=== PATIENT | male | born 1935 | race Caucasian/White ===

== ENCOUNTER 2018-02-05 12:44 | Emergency (ER) | payer MEDICARE ==
[2018-02-05 13:34] VITALS: BP 115/60
--- NOTE | 2018-02-05 14:31 | RAD ---
INDICATION: Left hip injury. COMPARISON: There are no prior studies available for comparison. TECHNIQUE: An AP view of the pelvis and frontal and lateral views of the left hip were obtained. FINDINGS: The bones are in normal alignment. No fracture is seen. 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 IMPRESSION: NO EVIDENCE FOR FRACTURE, IF THE PATIENT'S SYMPTOMS PERSIST RECOMMEND FOLLOW-UP IMAGING.
--- NOTE | 2018-02-05 14:32 | RAD ---
INDICATION: Left knee pain COMPARISON: June 13, 2012 TECHNIQUE: AP and lateral views were obtained. FINDINGS: There is left knee arthroplasty. Both femoral and tibial components appear well seated. There is no radiographic change. The soft tissues are remarkable for vascular calcifications. There is no joint effusion. IMPRESSION: LEFT KNEE ARTHROPLASTY. NO EVIDENCE OF HARDWARE FAILURE.
--- NOTE | 2018-02-05 15:14 | UC ---
Lower Extremity/Ankle HPI - HPI Summary HPI Summary: This 82-year-old gentleman comes to urgent care today after falling on Monday and injuring his left leg he has bruising on both medial and lateral in his thigh. He was just seen at his primary care doctor's office with a did point-of -care testing for his INH 1 machine read him it for the other machine read him at 5. The patient states primary care sent him here for evaluation of the elevated INR and for hemoglobin hematocrit due to the bruising on his leg. Patient complains of leg and knee pain. 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 Luciano infectious disease - History of Current Complaint Chief Complaint: UCLowerExtremity Stated Complaint: LEG COMPLAINT Time Seen by Provider: 02/05/18 14:13 Hx Obtained From: Patient Onset/Duration: Sudden Onset, Lasting Days - 3, Still Present Severity Initially: Moderate Severity Currently: Moderate Pain Intensity: 4 Pain Scale Used: 0-10 Numeric Aggravating Factor(s): Nothing Able to Bear Weight: Yes - Allergies/Home Medications Allergies/Adverse Reactions: Allergies Allergy/AdvReac Type Severity Reaction Status Date / Time No Known Allergies Allergy Verified 02/05/18 13:37 PMH/Surg Hx/FS Hx/Imm Hx Endocrine History: Dyslipidemia Cardiovascular History: Hypertension Psychological History: Depression - Surgical History Surgical History: Yes Surgery Procedure, Year, and Place: cardiac ablation,pacemaker(Rochestor). 3 left total knee. 1 right total knee. catarct pat eyes. tonsiletomy. Left knee replacement 2009. Right knee replacement 1994. ing right hernia repair. L knee replacement - Family History Known Family History: Positive: Unknown - Social History Occupation: Retired Lives: With Family Alcohol Use: Occasionally Substance Use Type: None Smoking Status (MU): Former Smoker Type: Cigarettes Length of Time of Smoking/Using Tobacco: 5 yrs Have You Smoked in the Last Year: No When Did the Patient Quit Smoking/Using Tobacco: 1963 - Immunization History Most Recent Influenza Vaccination: Fall 2013 Most Recent Tetanus Shot: within 10 years Most Recent Pneumonia Vaccination: has had, pt can't recall when Review of Systems Constitutional: Negative Skin: Bruising - Medial and lateral left thigh Eyes: Negative ENT: Negative Respiratory: Negative Cardiovascular: Negative Gastrointestinal: Negative Genitourinary: Negative Motor: Negative Neurovascular: Negative Musculoskeletal: Arthralgia - Left knee, Myalgia - Medial and lateral thigh left left knee Neurological: Negative Psychological: Negative Is Patient Immunocompromised?: No All Other Systems Reviewed And Are Negative: Yes Physical Exam Triage Information Reviewed: Yes Appearance: Well-Appearing, No Pain Distress, Well-Nourished Vital Signs: Initial Vital Signs Temp 98.0 F 02/05/18 13:27 Pulse 67 02/05/18 13:27 Resp 16 02/05/18 13:27 BP 115/60 02/05/18 13:27 Pulse Ox 100 02/05/18 13:27 Vital Signs Reviewed: Yes Eye Exam: Normal Eyes: Positive: Conjunctiva Clear ENT Exam: Normal ENT: Positive: Normal ENT inspection, Hearing grossly normal, Pharynx normal, TMs normal, Uvula midline. Negative: Nasal congestion, Tonsillar swelling, Tonsillar exudate, Trismus, Muffled voice, Hoarse voice, Dental tenderness, Sinus tenderness Neck exam: Normal Neck: Positive: Supple, Nontender Respiratory Exam: Normal Respiratory: Positive: Chest non-tender, No respiratory distress, No accessory muscle use Cardiovascular Exam: Normal Cardiovascular: Positive: RRR, Pulses Normal, Brisk Capillary Refill Musculoskeletal Exam: Other Musculoskeletal: Positive: Strength Intact, ROM Intact, Edema @ - Left thigh Neurological Exam: Normal Neurological: Positive: Alert, Muscle Tone Normal Psychological Exam: Normal Skin Exam: Normal Diagnostics - Radiology No standard instances Xray Interpretation: No Acute Changes Radiology Interpretation Completed By: Radiologist Lower Extremity Course/Dx - Course Course Of Treatment: Plan is to send patient to the emergency department where he can get him CBC and an INR drawn and resulted stat - Differential Dx/Diagnosis Provider Diagnoses: Contusion left thigh elevated INR Discharge - Discharge Plan Condition: Fair Disposition: OTHER Discharge Disposition Comment: to the ED by private car Patient Education Materials: Elevated INR (ED), Hip Contusion (ED) Referrals: Joce Manjarrez MD [Primary Care Provider] - Additional Instructions: Please go directly to the emergency department for evaluation of INR and hemoglobin and hematocrit
== END 2018-02-05 14:47 ==
LOC: UCEAST 12:44
DX: S70.12XA Contusion of left thigh, initial encounter (principal); W19.XXXA Unspecified fall, initial encounter; Y93.9 Activity, unspecified; Y92.9 Unspecified place or not applicable; R79.1 Abnormal coagulation profile; M25.562 Pain in left knee; E78.5 Hyperlipidemia, unspecified; I10 Essential (primary) hypertension; F32.9 Major depressive disorder, single episode, unspecified; Z95.0 Presence of cardiac pacemaker; Z96.653 Presence of artificial knee joint, bilateral; Z87.891 Personal history of nicotine dependence
CPT/HCPCS: 99212; G0463

== ENCOUNTER 2018-02-05 15:17 | Emergency (ER) | payer MEDICARE ==
[2018-02-05 15:58] LABS: ABS Basophils 0.1 10^3/ul (0-0.2); ABS Eosinophils 0.2 10^3/ul (0-0.6); ABS Lymphocytes 1.7 10^3/ul (1.0-4.8); ABS Monocytes 0.9 10^3/ul (0-0.8); ABS Nucleated RBC 0 10^3/ul; Eosinophil % 3.1 % (0-6); Hematocrit 37 % (42-52); Hemoglobin 12.6 g/dl (14.0-18.0); Lymphocyte % 24.9 % (25-47); Mean Corpuscular HGB Conc 34 g/dl (31-36); Mean Corpuscular Hemoglobin 33 pg (27-31); Mean Corpuscular Volume 97 fL (80-94); Mean Platelet Volume 9 um3 (7.4-10.4); Nucleated Red Blood Cells % 0.1; Platelet Count 218 10^3/ul (150-450); Red Blood Count 3.82 10^6/ul (4.0-5.4); Red Cell Distribution Width 14 % (10.5-15); White Blood Count 6.9 10^3/ul (3.5-10.8)
[2018-02-05 16:05] LABS: INR 4.66 (0.77-1.02)
--- NOTE | 2018-02-05 16:08 | ED ---
Lower Extremity - HPI Summary HPI Summary: 82-year-old male presents for INR check today. He states he was seen by primary and his INR was either 4 or 5. He states his primary sent him to urgent care but they cannot do a stat INR so they sent him here. He states he had x-rays which were normal. He states he has a contusion to his left leg from falling 3 days ago. He states the area is black and blue. He denies any numbness or tingling. He is able to ambulate with a cane. He denies any hematuria or rectal bleeding. Denies any epistaxis. He is on Coumadin for A. fib. He states that last week his inr was low so they increase his dose. He states he has not been following his diet 2 weeks ago as he was on vacation. 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, Other Cardiovascular Problems /Disorders - mitral valve insufficiency, a-fib resolved Denies: Hx Congestive Heart Failure History: Reports: Other Problems/Disorders - chronic enlarged bladder Denies: Hx Kidney Stones Musculoskeletal History: Reports: Other Musculoskeletal History - Bilateral knee replacements Sensory History: Reports: Hx Contacts or Glasses, Hx Hearing Aid Opthamlomology History: Reports: Hx Contacts or Glasses Neurological History: Reports: Other Neuro Impairments/Disorders - [place] - Surgical History Surgery Procedure, Year, and Place: cardiac ablation,pacemaker(Rochestor). 3 left total knee. 1 right total knee. catarct pat eyes. tonsiletomy. Left knee replacement 2009. Right knee replacement 1994. ing right hernia repair. L knee replacement Hx Anesthesia Reactions: No Infectious Disease History: Unable to Obtain/Confirm Infectious Disease History: Denies: Traveled Outside the [place] in Last 30 Days - Family History Known Family History: Positive: Unknown - Social History Alcohol Use: Occasionally Substance Use Type: Reports: None Smoking Status (MU): Former Smoker Type: Cigarettes Length of Time of Smoking/Using Tobacco: 5 yrs Have You Smoked in the Last Year: No Review of Systems Negative: Fever Negative: Chest Pain Negative: Shortness Of Breath Positive: Bruising - left leg All Other Systems Reviewed And Are Negative: Yes Physical Exam Triage Information Reviewed: Yes Vital Signs On Initial Exam: Initial Vitals Temp Pulse Resp BP Pulse Ox 97.4 F 60 17 126/50 99 02/05/18 15:19 02/05/18 15:19 02/05/18 15:19 02/05/18 15:19 02/05/18 15:19 Vital Signs Reviewed: Yes Appearance: Positive: Well-Appearing Skin: Positive: Warm, Dry Eyes: Positive: Normal, Conjunctiva Clear Respiratory/Lung Sounds: Positive: Clear to Auscultation, Breath Sounds Present Cardiovascular: Positive: Normal, RRR Musculoskeletal: Positive: Strength/ROM Intact - left leg, Other - good pulses Neurological: Positive: Normal Psychiatric: Positive: Normal Diagnostics - Vital Signs Vital Signs Temp Pulse Resp BP Pulse Ox 02/05/18 15:19 97.4 F 60 17 126/50 99 - Laboratory Lab Results: Lab Results 02/05/18 Range/Units 15:45 WBC 6.9 (3.5-10.8) 10^3/ul RBC 3.82 L (4.0-5.4) 10^6/ul Hgb 12.6 L (14.0-18.0) g/dl Hct 37 L (42-52) % MCV 97 H (80-94) fL MCH 33 H (27-31) pg MCHC 34 (31-36) g/dl RDW 14 (10.5-15) % Plt Count 218 (150-450) 10^3/ul MPV 9 (7.4-10.4) um3 Neut % (Auto) 57.8 (38-83) % Lymph % (Auto) 24.9 L (25-47) % Graves % (Auto) 13.3 H (0-7) % Eos % (Auto) 3.1 (0-6) % Baso % (Auto) 0.9 (0-2) % Absolute Neuts (auto) 4.0 (1.5-7.7) 10^3/ul Absolute Lymphs (auto) 1.7 (1.0-4.8) 10^3/ul Absolute Monos (auto) 0.9 H (0-0.8) 10^3/ul Absolute Eos (auto) 0.2 (0-0.6) 10^3/ul Absolute Basos (auto) 0.1 (0-0.2) 10^3/ul Absolute Nucleated RBC 0 10^3/ul Nucleated RBC % 0.1 Result Diagrams: 02/05/18 15:45 Lab Statement: Any lab studies that have been ordered have been reviewed, and results considered in the medical decision making process. - Ultrasound No standard instances Ultrasound Interpretation: No Acute Changes Ultrasound Interpretation Completed By: Radiologist Lower Extremity Course/Dx - Course Course Of Treatment: 82-year-old male presents for INR check today. He states he was seen by primary and his INR was either 4 or 5. He states his primary sent him to urgent care but they cannot do a stat INR so they sent him here. He states he had x-rays which were normal. He states he has a contusion to his left leg from falling 3 days ago. He states the area is black and blue. He denies any numbness or tingling. He is able to ambulate with a cane. He denies any hematuria or rectal bleeding. Denies any epistaxis. He is on Coumadin for A. fib. He states that last week his inr was low so they increase his dose. He states he has not been following his diet 2 weeks ago as he was on vacation. Patient's labs were being drawn one was in the room. Went to get gown so can evaluate leg and patient eloped. attempted to get a hold of primary as INR is 4.66. spoke with dr travis vickers and told of plan to hold coumadin today. patient was contact and is coming back to the ED. patient was called and returned. will get u./s no DVT or hematoma. should elevate and ice. patient understand and agrees with plan. - Diagnoses Differential Diagnosis/HQI/PQRI: Positive: Contusion, DVT, Other - elevated inr Provider Diagnoses: Elevated INR, Contusion of left leg Discharge - Discharge Plan Condition: Good Disposition: HOME Patient Education Materials: Contusion in Adults (ED), Elevated INR (ED) Referrals: Joce Manjarrez MD [Primary Care Provider] - Additional Instructions: Hold coumadin today and call primary tomorrow ice, elevate Take Tylenol every 6 hours for pain Return to ED if develop any new or worsening symptoms
--- NOTE | 2018-02-05 18:01 | RAD ---
INDICATION: Pain and swelling. COMPARISON: None TECHNIQUE: Duplex interrogation of the Lowerextremity was performed. FINDINGS: Deep veins: The common femoral, great saphenous, profunda femoris, proximal, mid, and distal deep femoral, popliteal, posterior tibial, and peroneal veins are patent. There is normal compressibility, augmentation, and phasic flow. There are findings of venous stasis in the posterior tibial. Superficial veins: There are no findings of superficial thrombophlebitis. Popliteal fossa:There is no evidence of a popliteal cyst. Soft tissues:There are no soft tissue abnormalities. IMPRESSION: NO EVIDENCE OF DEEP VENOUS THROMBOSIS
[2018-02-05 18:22] VITALS: BP 121/56
== END 2018-02-05 18:20 | disposition home or self-care (01) ==
LOC: ED 15:17
DX: S80.12XA Contusion of left lower leg, initial encounter (principal); R79.1 Abnormal coagulation profile; Z96.651 Presence of right artificial knee joint; W19.XXXA Unspecified fall, initial encounter; Y92.9 Unspecified place or not applicable; Z87.891 Personal history of nicotine dependence
CPT/HCPCS: 36415; 85025; 85610; 99282

== ENCOUNTER 2019-01-31 08:10 | Day surgery (SDC) | payer MEDICARE ==
[~2019-01-31 08:10] MED LIST: Buffered Lidocaine 1% SYRIN* 1 ML/SYRINGE INTRADERM ONE; Lactated Ringers 1000 ML Bag* 1,000 ML IV SCH
[2019-01-31] MEDS ORDERED: ceFAZolin 2 GM PREMIX in ORs 2 GM/50 ML BAG IVPB ONE (08:26)
[2019-01-31] MEDS ORDERED: Bupivacaine 0.5% SDV PF* 30ML VIAL ONE (08:46)
[2019-01-31] MEDS ORDERED: Lidocaine 1% INJ* 10 MG/ML 30 ML SDV ONE (08:46)
[2019-01-31] MEDS ORDERED: Midazolam* 1 MG/ML 2 ML VIAL (2 MG) ONE (09:32)
[2019-01-31] MEDS ORDERED: Propofol* 10 MG/ML 20 ML BTL ONE (09:32)
[2019-01-31] MEDS ORDERED: Dexamethasone IV* 4 MG/ML 1 ML (4 MG) ONE (10:32)
[2019-01-31] MEDS ORDERED: HYDROcodone/ACETAMIN 5-325 MG* 1 TAB PO PRN (10:43)
[2019-01-31] MEDS ORDERED: fentaNYL* 50 MCG/ML 2 ML VIAL (100 MCG VIAL) IV PRN (10:43)
[2019-01-31] MEDS ORDERED: Acetaminophen TAB* 325 MG PO PRN (10:43)
[2019-01-31] MEDS ORDERED: DiMENhydriNATE IV* 50 MG/ML VIAL IV PUSH PRN (10:43)
[2019-01-31] MEDS ORDERED: Naloxone* 0.4 MG/ML 1 ML VIAL IV PRN (10:43)
[2019-01-31] MEDS ORDERED: oxyCODONE/Acetamin 5/325 MG* TAB PO PRN (10:43)
[2019-01-31] MEDS ORDERED: Ondansetron INJ* 2 MG/ML VIAL IV PRN (10:43)
[2019-01-31 11:28] VITALS: BP 123/60
--- NOTE | 2019-01-31 12:45 | OP ---
D ATE OF OPERATION: 01/31/19 - OR EAST DATE OF : 37 SURGEON: Rusty Thakur DPM SKIRT PANEL ASSEMBLER: None. ANESTHESIA: MAC with local. PRE-OP DIAGNOSES: 1. Painful dislocated second left hammertoe. 2. Painful third left hammertoe. POST-OP DIAGNOSES: 1. Painful dislocated second left hammertoe. 2. Painful third left hammertoe. OPERATIVE PROCEDURES: 1. Correction of second left hammertoe with MTPJ arthrotomy, extensor tendon lengthening and PIPJ arthrodesis with K-wire fixation, second digit left foot. 2. Correction of second left hammertoe with MTPJ arthrotomy, extensor tendon lengthening and PIPJ arthrodesis with K-wire fixation, third digit left foot. PATHOLOGY: Degenerative bone. HEMOSTASIS: Pneumatic ankle tourniquet. MATERIALS: Two of the smooth 0.062 inch K-wire. 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 The second digit in particular is nearly dislocated dorsally creating excessive left forefoot pressures, chronic pain and inflammation with walking, and the patient opts for surgery this time to attempt to decrease the deformity to reduce the forefoot pressure, decrease the pain, and improve his ability to walk and wear shoes without pain. DESCRIPTION OF PROCEDURE: The patient was brought to the operating room and placed on the operating room table in supine position. The anesthesia department administered IV sedation and peripheral nerve block was performed to the left foot with a 1:1 mixture of 1% lidocaine plain and 0.5% Marcaine plain. The left foot was prepped and draped in the usual fashion. Attention was directed to the dorsal aspect of the second digit where a curvilinear incision was made. The incision was deepened through the subcutaneous tissues with care being taken to retract the neurovascular structures and cauterize superficial bleeders with bipolar cautery. Extensor krishnamurthy was released. The extensor tendon was lengthened with a Z tendon lengthening procedure. At the PIPJ, the transverse tenotomy capsulotomy was performed. The proximal phalangeal head was resected with a sagittal saw as well as the adjacent base of the middle phalanx and a Power cooper was used to smooth the rough edges. Surgical site was flushed with copious amounts of normal sterile saline. There was a dorsal contracture at the metatarsophalangeal joint and a McGlamry elevator was gently introduced plantarly to free plantar adhesions. A smooth 0.062 inch K-wire was then driven to the base of the phalanx through the tip of the digit through the proximal phalanx and across the metatarsophalangeal joint, holding the digit in the corrected position. The PIPJ was inspected to make sure it was well approximated. Attention next to the dorsal aspect of the third left digit where the same surgical technique and procedures were performed with same fixation. After assessing the position and fixation with the C-arm, the wires were then bent and cut and capped. Surgical sites were flushed with copious amounts of normal sterile saline. The capsular and tendon structures were reapproximated with 4-0 Vicryl, subcutaneous tissues were reapproximated with 4- 0 Vicryl and skin was reapproximated with 5-0 nylon. This was done at both surgical incisions. Dexamethasone phosphate 8 mg was infiltrated about the surgical site and each incision was grasped with Xeroform gauze and a sterile dressing with 4x4 gauze, Jose Alberto, and light Coban wrap. The pneumatic ankle tourniquet was deflated about the left ankle. After a few moments, hyperemic response was noted to all 5 digits of the patient's left foot. Having appeared to tolerate the procedures and anesthesia well, the patient was transported via cart from the operating room to recovery in satisfactory condition with capillary refill less than 3 seconds to all digits of the left foot. [id number]/CPS #: [id number] MTDD
== END 2019-01-31 11:25 | disposition home or self-care (01) ==
LOC: OREAST 08:10
PROVIDERS: ATTEND Podiatrist Foot Surgery
DX: M20.42 Other hammer toe(s) (acquired), left foot (principal); I48.91 Unspecified atrial fibrillation; Z79.01 Long term (current) use of anticoagulants; I25.10 Atherosclerotic heart disease of native coronary artery without angina pectoris; I10 Essential (primary) hypertension; I34.0 Nonrheumatic mitral (valve) insufficiency; E03.9 Hypothyroidism, unspecified; E11.9 Type 2 diabetes mellitus without complications; G47.33 Obstructive sleep apnea (adult) (pediatric); E78.00 Pure hypercholesterolemia, unspecified; Z95.0 Presence of cardiac pacemaker
CPT/HCPCS: 76000; C1776; J0690; J1100; J2250; J2704

== ENCOUNTER 2021-05-11 22:33 | Inpatient (IN) ==
[2021-05-12 00:35] LABS: ABS Basophils 0.1 10^3/ul (0-0.2); ABS Lymphocytes 0.1 10^3/ul (1.0-4.8); ABS Monocytes 0.2 10^3/ul (0-0.8); ABS Neutrophils 17.7 10^3/ul (1.5-7.7); Eosinophil % 0.1 %; Hematocrit 37 % (42-52); Hemoglobin 12.5 g/dL (14.0-18.0); Lymphocyte % 0.6 %; Mean Corpuscular HGB Conc 33 g/dL (31-36); Mean Corpuscular Hemoglobin 32 pg (27-31); Mean Corpuscular Volume 97 fL (80-94); Mean Platelet Volume 9.1 fL (7.4-10.4); Platelet Count 187 10^3/uL (150-450); Red Blood Count 3.86 10^6 /uL (4.18-5.48); Red Cell Distribution Width 13 % (10-15)
[2021-05-12 00:42] LABS: Urine Appearance Cloudy; Urine Bilirubin Negative (Negative); Urine Blood 1+ (Negative); Urine Color Yellow; Urine Glucose 1+(50 mg/dL) (Negative); Urine Ketones Negative (Negative); Urine Nitrite Positive (Negative); Urine Protein 1+(30 mg/dL) (Negative); Urine Specific Gravity 1.016 (1.002-1.030); Urine Urobilinogen Negative (Negative)
[2021-05-12 00:50] LABS: Urine Bacteria 3+ (Absent); Urine Red Blood Cell 3+(>10/hpf) (Absent); Urine Squamous Epithelial Cell Present (Absent); Urine White Blood Cell 3+(>20/hpf) (Absent)
[2021-05-12 00:53] LABS: Albumin 3.5 g/dL (3.2-5.2); Albumin/Globulin Ratio 1.1 (1-3); C Reactive Protein 71.67 mg/L (<8.01); Calcium 9.3 mg/dL (8.6-10.3); EGFR African American 64.8 (>60); EGFR Non-African American 53.5 (>60); Globulin 3.2 g/dL (2-4); Potassium 4.1 mmol/L (3.5-5.0); Total Bilirubin 0.8 mg/dL (0.2-1.0); Total Protein 6.7 g/dL (6.4-8.9)
[2021-05-12] MEDS ORDERED: NS 0.9% 1000 ml BAG 1,000 ML IV ONE ×2 (01:07→15:06)
[2021-05-12] MEDS ORDERED: NS 0.9% 1000 ml BAG 2,000 ML IV ONE (01:09)
[2021-05-12] MEDS ORDERED: cefTRIAXone 1 gm/50 mL NS BAG 1 GM/50 ML BAG IV ONE (01:09)
[2021-05-12] MEDS ORDERED: Fluticasone NASAL SPRAY 50MCG 16 gm SPRAY BTL BOTH NARES PRN (02:37)
[2021-05-12 07:03] LABS: Hematocrit 38 % (42-52); Hemoglobin 12.8 g/dL (14.0-18.0); Mean Corpuscular HGB Conc 34 g/dL (31-36); Mean Corpuscular Hemoglobin 33 pg (27-31); Mean Corpuscular Volume 98 fL (80-94); Mean Platelet Volume 8.8 fL (7.4-10.4); Platelet Count 165 10^3/uL (150-450); Red Blood Count 3.85 10^6 /uL (4.18-5.48); Red Cell Distribution Width 13 % (10-15); White Blood Count 26.4 10^3/uL (3.5-10.8)
[2021-05-12 07:17] LABS: Albumin 3.5 g/dL (3.2-5.2); Albumin/Globulin Ratio 1.1 (1-3); Calcium 8.9 mg/dL (8.6-10.3); EGFR African American 67.8 (>60); EGFR Non-African American 56.1 (>60); Globulin 3.3 g/dL (2-4); Potassium 4.5 mmol/L (3.5-5.0); Total Bilirubin 1.4 mg/dL (0.2-1.0); Total Protein 6.8 g/dL (6.4-8.9)
[2021-05-12] MEDS ORDERED: NS 0.9% 1000 ml BAG 1,000 ML IV SCH (07:30)
[2021-05-12 07:46] LABS: ABS Basophils 0.2 10^3/ul (0-0.2); ABS Lymphocytes 0.2 10^3/ul (1.0-4.8); ABS Monocytes 0.6 10^3/ul (0-0.8); ABS Neutrophils 25.4 10^3/ul (1.5-7.7); Eosinophil % 0.1 %; Lymphocyte % 0.8 %
[2021-05-12] MEDS ORDERED: Vancomycin 1,500 MG in NS 0.9% 250 ml 250 ML IVPB ONE (08:00)
[2021-05-12] MEDS: NS 0.9% 1000 ml BAG 1,000 ML IV SCH ×3 (08:32→22:30)
[2021-05-12] MEDS: Cholecalciferol (VIT D3) 1,000 unit TAB PO SCH (08:37)
[2021-05-12] MEDS: Nitroglycerin 0.2 mg/hr PATCH (5 mg) TRANSDERM SCH (08:38)
[2021-05-12] MEDS ORDERED: Meropenem 1 GM PREMIX(*) 1 GM/50 ML BAG IV SCH (09:00)
[2021-05-12] MEDS ORDERED: Sulfamethox/Trimethoprim DS TAB 800/160 mg PO SCH (09:00)
[2021-05-12] MEDS ORDERED: NS 0.9% 500 ml BAG 500 ML IV ONE ×2 (12:17→14:57)
[2021-05-12] MEDS ORDERED: Cefepime 2 GM in Dextrose 2 GM/50 ML BAG IV SCH (18:00)
[2021-05-12] MEDS ORDERED: cefTRIAXone 2 GM ADDV.VIAL 2 GM in NS 0.9% 100 ml BAG 100 ML IV SCH (18:00)
[2021-05-12] MEDS: Cefepime 2 GM in NS 0.9% 50 ML 50 ML IVPB SCH (18:09)
[2021-05-12] MEDS: CMC:Pravastatin 20 mg TAB (NF) PO SCH (21:44)
[2021-05-12] MEDS: Nitro Patch/OINT Remove PATCH PATCH OFF SCH (22:25)
[2021-05-13] MEDS ORDERED: cefTRIAXone 1 gm/50 mL NS BAG 1 GM/50 ML BAG IVPB SCH (03:00)
[2021-05-13 06:24] LABS: Calcium 8.4 mg/dL (8.6-10.3); EGFR African American 94.8 (>60); EGFR Non-African American 78.4 (>60); Magnesium 1.6 mg/dL (1.9-2.7); Potassium 3.9 mmol/L (3.5-5.0)
[2021-05-13] MEDS: NS 0.9% 1000 ml BAG 1,000 ML IV SCH ×2 (07:00→08:44)
[2021-05-13] MEDS: Cefepime 2 GM in NS 0.9% 50 ML 50 ML IVPB SCH (07:03)
[2021-05-13] MEDS ORDERED: Magnesium Sulfate 2 gm BAG 2 GM/50 ML BAG IVPB ONE (07:08)
[2021-05-13 08:49] LABS: Hematocrit 35 % (42-52); Hemoglobin 11.7 g/dL (14.0-18.0); Mean Corpuscular HGB Conc 33 g/dL (31-36); Mean Corpuscular Hemoglobin 32 pg (27-31); Mean Corpuscular Volume 97 fL (80-94); Platelet Count Platelets clumped. 10^3/uL (150-450); Red Blood Count 3.63 10^6 /uL (4.18-5.48); Red Cell Distribution Width 13 % (10-15); White Blood Count 15.9 10^3/uL (3.5-10.8)
[2021-05-13] MEDS: Cholecalciferol (VIT D3) 1,000 unit TAB PO SCH (08:52)
[2021-05-13] MEDS: Nitroglycerin 0.2 mg/hr PATCH (5 mg) TRANSDERM SCH (08:52)
[2021-05-13] MEDS ORDERED: Zosyn per Pharmacy NOTE FOLLOW UP SCH (17:00)
[2021-05-13] MEDS ORDERED: Piperacillin/Tazobac ADVAN 3.375 GM in NS 0.9% 100 ml BAG 100 ML IV ONE (18:00)
[2021-05-13] MEDS: ZOSYN 3.375 GM Q8H per EXTENDED INFUSION IV SCH (22:00)
[2021-05-13] MEDS: Nitro Patch/OINT Remove PATCH PATCH OFF SCH (22:00)
[2021-05-13] MEDS: CMC:Pravastatin 20 mg TAB (NF) PO SCH (22:00)
[2021-05-14] MEDS: ZOSYN 3.375 GM Q8H per EXTENDED INFUSION IV SCH (05:28)
[2021-05-14] MEDS: Cholecalciferol (VIT D3) 1,000 unit TAB PO SCH (07:58)
[2021-05-14] MEDS: Nitroglycerin 0.2 mg/hr PATCH (5 mg) TRANSDERM SCH (08:00)
[2021-05-14] MEDS ORDERED: Meropenem 2 GM in NS 0.9% 100 ml BAG 100 ML IVPB SCH (14:00)
[2021-05-14] MEDS: Meropenem 1 GM PREMIX(*) 1 GM/50 ML BAG IV SCH ×2 (14:14→22:14)
[2021-05-14] MEDS ORDERED: Buffered Lidocaine 1% SYRIN 1 ml INTRADERM ONE (14:29)
[2021-05-14] MEDS: CMC:Pravastatin 20 mg TAB (NF) PO SCH (22:12)
[2021-05-14] MEDS: Nitro Patch/OINT Remove PATCH PATCH OFF SCH (22:30)
[2021-05-15] MEDS: Meropenem 1 GM PREMIX(*) 1 GM/50 ML BAG IV SCH ×3 (05:22→23:24)
[2021-05-15] MEDS: Cholecalciferol (VIT D3) 1,000 unit TAB PO SCH (10:04)
[2021-05-15] MEDS: Nitroglycerin 0.2 mg/hr PATCH (5 mg) TRANSDERM SCH (10:06)
[2021-05-15] MEDS: CMC:Pravastatin 20 mg TAB (NF) PO SCH (23:26)
[2021-05-15] MEDS: Nitro Patch/OINT Remove PATCH PATCH OFF SCH (23:33)
[2021-05-16] MEDS: Meropenem 1 GM PREMIX(*) 1 GM/50 ML BAG IV SCH ×3 (05:01→20:46)
[2021-05-16] MEDS: Cholecalciferol (VIT D3) 1,000 unit TAB PO SCH (09:39)
[2021-05-16] MEDS: Nitroglycerin 0.2 mg/hr PATCH (5 mg) TRANSDERM SCH (09:41)
[2021-05-16] MEDS: CMC:Pravastatin 20 mg TAB (NF) PO SCH (20:43)
[2021-05-16] MEDS: Nitro Patch/OINT Remove PATCH PATCH OFF SCH (21:24)
[2021-05-17] MEDS: Meropenem 1 GM PREMIX(*) 1 GM/50 ML BAG IV SCH ×3 (05:41→21:04)
[2021-05-17] MEDS: Nitroglycerin 0.2 mg/hr PATCH (5 mg) TRANSDERM SCH (09:49)
[2021-05-17] MEDS: Cholecalciferol (VIT D3) 1,000 unit TAB PO SCH (09:50)
[2021-05-17 15:05] LABS: ABS Basophils 0.1 10^3/ul (0-0.2); ABS Eosinophils 0.3 10^3/ul (0-0.6); ABS Monocytes 0.9 10^3/ul (0-0.8); ABS Neutrophils 9.6 10^3/ul (1.5-7.7); Eosinophil % 2.7 %; Hematocrit 35 % (42-52); Hemoglobin 11.8 g/dL (14.0-18.0); Lymphocyte % 8.3 %; Mean Corpuscular HGB Conc 34 g/dL (31-36); Mean Corpuscular Hemoglobin 32 pg (27-31); Mean Corpuscular Volume 96 fL (80-94); Nucleated Red Blood Cells % 0.1; Red Blood Count 3.64 10^6 /uL (4.18-5.48); Red Cell Distribution Width 13 % (10-15); White Blood Count 11.9 10^3/uL (3.5-10.8)
[2021-05-17 15:06] LABS: Calcium 8.9 mg/dL (8.6-10.3); EGFR African American 121.9 (>60); EGFR Non-African American 100.8 (>60); Magnesium 1.6 mg/dL (1.9-2.7); Potassium 3.5 mmol/L (3.5-5.0)
[2021-05-17 15:41] LABS: Polychromasia 2+
[2021-05-17 15:42] LABS: Anisocytosis 1+
[2021-05-17] MEDS ORDERED: Magnesium Sulfate 2 gm BAG 2 GM/50 ML BAG IVPB ONE (16:08)
[2021-05-17] MEDS: CMC:Pravastatin 20 mg TAB (NF) PO SCH (21:04)
[2021-05-17] MEDS: Nitro Patch/OINT Remove PATCH PATCH OFF SCH (21:07)
[2021-05-17] MEDS: Sulfamethox/Trimethoprim DS TAB 800/160 mg PO SCH (21:15)
[2021-05-18] MEDS: Meropenem 1 GM PREMIX(*) 1 GM/50 ML BAG IV SCH (05:58)
[2021-05-18] MEDS: Sulfamethox/Trimethoprim DS TAB 800/160 mg PO SCH (08:11)
[2021-05-18] MEDS: Cholecalciferol (VIT D3) 1,000 unit TAB PO SCH (08:12)
[2021-05-18] MEDS: Nitroglycerin 0.2 mg/hr PATCH (5 mg) TRANSDERM SCH (08:12)
[2021-05-18 12:16] VITALS: BP 120/44
== END 2021-05-18 15:35 | disposition home or self-care (01) | DRG 872 ==
LOC: ED 22:33 → MEDTELE 05-12 02:32
PROVIDERS: ADMIT Internal Medicine; ATTEND Internal Medicine

== ENCOUNTER 2021-09-07 21:42 | Inpatient (IN) ==
[2021-09-07 22:41] LABS: ABS Basophils 0.1 10^3/ul (0-0.2); ABS Eosinophils 0.1 10^3/ul (0-0.6); ABS Lymphocytes 1.8 10^3/ul (1.0-4.8); ABS Monocytes 1.1 10^3/ul (0-0.8); ABS Neutrophils 6.7 10^3/ul (1.5-7.7); Eosinophil % 1.3 %; Hematocrit 38 % (42-52); Hemoglobin 12.9 g/dL (14.0-18.0); Lymphocyte % 18.4 %; Mean Corpuscular HGB Conc 34 g/dL (31-36); Mean Corpuscular Hemoglobin 32 pg (27-31); Mean Corpuscular Volume 94 fL (80-94); Mean Platelet Volume 8.2 fL (7.4-10.4); Platelet Count 330 10^3/uL (150-450); Red Blood Count 4.08 10^6 /uL (4.18-5.48); Red Cell Distribution Width 14 % (10-15); White Blood Count 9.9 10^3/uL (3.5-10.8)
[2021-09-07 22:58] LABS: ALT 10 U/L (7-52); AST 17 U/L (13-39); Albumin 3.9 g/dL (3.2-5.2); Albumin/Globulin Ratio 1.1 (1-3); Alkaline Phosphatase 77 U/L (35-149); Anion Gap 11 mmol/L (2-11); Blood Urea Nitrogen 17 mg/dL (6-24); C Reactive Protein 18.32 mg/L (<8.01); CO2 Carbon Dioxide 20 mmol/L (22-32); Chloride 98 mmol/L (101-111); Globulin 3.4 g/dL (2-4); Glucose 105 mg/dL (70-100); Potassium 3.9 mmol/L (3.5-5.0); Sodium 129 mmol/L (135-145); Total Protein 7.3 g/dL (6.4-8.9)
[2021-09-07] MEDS ORDERED: NS 0.9% 1000 ml BAG 1,000 ML IV ONE (23:09)
[2021-09-07 23:23] LABS: Alcohol, S < 13 mg/dL (<13)
[2021-09-08] MEDS ORDERED: Dextrose 50% Syringe 50 ml 25 GM/50 ML SYRINGE IV PUSH PRN (01:36)
[2021-09-08 02:20] LABS: Rapid COVID-19 Molecular Undetected (Undetected)
[2021-09-08 02:56] LABS: Urine Appearance Turbid; Urine Bilirubin Negative (Negative); Urine Blood 2+ (Negative); Urine Color Yellow; Urine Glucose Negative (Negative); Urine Ketones Trace (Negative); Urine Nitrite Positive (Negative); Urine Protein Negative (Negative); Urine Specific Gravity 1.013 (1.002-1.030); Urine Urobilinogen Negative (Negative)
[2021-09-08] MEDS ORDERED: Meropenem 1 GM IV - ED ONCE IV ONE (03:00)
[2021-09-08 03:05] LABS: Urine Creatinine Concentration 67.44 mg/dL
[2021-09-08 03:11] LABS: Urine Bacteria 2+ (Absent); Urine Red Blood Cell 3+(>10/hpf) (Absent); Urine White Blood Cell 3+(>20/hpf) (Absent)
[2021-09-08 03:49] LABS: TSH Ultra Thyroid Stim Horm 4.32 mcIU/mL (0.34-5.60)
[2021-09-08 05:56] LABS: ABS Basophils 0.1 10^3/ul (0-0.2); ABS Eosinophils 0.2 10^3/ul (0-0.6); ABS Lymphocytes 1.3 10^3/ul (1.0-4.8); ABS Monocytes 0.9 10^3/ul (0-0.8); ABS Neutrophils 4.7 10^3/ul (1.5-7.7); Eosinophil % 2.2 %; Hematocrit 36 % (42-52); Hemoglobin 12.3 g/dL (14.0-18.0); Lymphocyte % 18.2 %; Mean Corpuscular HGB Conc 34 g/dL (31-36); Mean Corpuscular Hemoglobin 32 pg (27-31); Mean Corpuscular Volume 94 fL (80-94); Mean Platelet Volume 7.8 fL (7.4-10.4); Nucleated Red Blood Cells % 0.1; Platelet Count 321 10^3/uL (150-450); Red Blood Count 3.86 10^6 /uL (4.18-5.48); Red Cell Distribution Width 14 % (10-15); White Blood Count 7.1 10^3/uL (3.5-10.8)
[2021-09-08 06:18] LABS: Calcium 9.4 mg/dL (8.6-10.3); Potassium 3.9 mmol/L (3.5-5.0)
[2021-09-08 06:35] LABS: INR 1.58 (0.86-1.15)
[2021-09-08] MEDS ORDERED: Polyethylene Glycol 3350 17 GM PACKET PO PRN (10:25)
[2021-09-08] MEDS ORDERED: Senna TAB 8.6 mg TAB PO PRN (10:25)
[2021-09-08] MEDS: Nitroglycerin 0.2 mg/hr PATCH (5 mg) TRANSDERM SCH (10:30)
[2021-09-08] MEDS: Sulfamethox/Trimethoprim DS TAB 800/160 mg PO SCH ×2 (14:19→20:08)
[2021-09-08] MEDS: Meropenem 1 GM PREMIX(*) 1 GM/50 ML BAG IV SCH (18:08)
[2021-09-09] MEDS: Meropenem 1 GM PREMIX(*) 1 GM/50 ML BAG IV SCH ×2 (05:46→18:40)
[2021-09-09 06:24] LABS: Calcium 9.6 mg/dL (8.6-10.3); Hematocrit 37 % (42-52); Hemoglobin 12.4 g/dL (14.0-18.0); Magnesium 1.8 mg/dL (1.9-2.7); Mean Corpuscular HGB Conc 34 g/dL (31-36); Mean Corpuscular Hemoglobin 31 pg (27-31); Mean Corpuscular Volume 93 fL (80-94); Potassium 3.9 mmol/L (3.5-5.0); Red Blood Count 3.97 10^6 /uL (4.18-5.48); Red Cell Distribution Width 14 % (10-15); White Blood Count 9.9 10^3/uL (3.5-10.8)
[2021-09-09 06:25] LABS: ABS Basophils 0.1 10^3/ul (0-0.2); ABS Eosinophils 0.3 10^3/ul (0-0.6); ABS Lymphocytes 1.7 10^3/ul (1.0-4.8); ABS Monocytes 1.1 10^3/ul (0-0.8); ABS Neutrophils 6.7 10^3/ul (1.5-7.7); Eosinophil % 3.2 %; Lymphocyte % 16.7 %; Nucleated Red Blood Cells % 0.2
[2021-09-09 08:37] LABS: Platelet Count Platelets clumped. 10^3/uL (150-450)
[2021-09-09] MEDS: Cholecalciferol (VIT D3) 1,000 unit TAB PO SCH (09:04)
[2021-09-09] MEDS: Sulfamethox/Trimethoprim DS TAB 800/160 mg PO SCH ×2 (09:11→20:07)
[2021-09-09] MEDS: Nitroglycerin 0.2 mg/hr PATCH (5 mg) TRANSDERM SCH (09:11)
[2021-09-09] MEDS: Magnesium Hydroxide LIQ 30 ML UDC PO PRN (09:22)
[2021-09-10] MEDS: Meropenem 1 GM PREMIX(*) 1 GM/50 ML BAG IV SCH ×2 (06:15→18:52)
[2021-09-10 06:17] LABS: ABS Basophils 0.1 10^3/ul (0-0.2); ABS Eosinophils 0.3 10^3/ul (0-0.6); ABS Lymphocytes 1.6 10^3/ul (1.0-4.8); ABS Monocytes 1.1 10^3/ul (0-0.8); ABS Neutrophils 6.3 10^3/ul (1.5-7.7); Eosinophil % 3.2 %; Hematocrit 38 % (42-52); Hemoglobin 12.7 g/dL (14.0-18.0); Lymphocyte % 16.6 %; Mean Corpuscular HGB Conc 34 g/dL (31-36); Mean Corpuscular Hemoglobin 32 pg (27-31); Mean Corpuscular Volume 93 fL (80-94); Nucleated Red Blood Cells % 0.1; Red Blood Count 4.02 10^6 /uL (4.18-5.48); Red Cell Distribution Width 14 % (10-15); White Blood Count 9.4 10^3/uL (3.5-10.8)
[2021-09-10 06:21] LABS: Calcium 9.4 mg/dL (8.6-10.3); Potassium 3.9 mmol/L (3.5-5.0)
[2021-09-10 07:27] LABS: Platelet Count 198 10^3/uL (150-450)
[2021-09-10] MEDS ORDERED: NS 0.9% 1000 ml BAG 1,000 ML IV SCH (08:00)
[2021-09-10] MEDS: Sulfamethox/Trimethoprim DS TAB 800/160 mg PO SCH ×2 (08:06→20:27)
[2021-09-10] MEDS: Cholecalciferol (VIT D3) 1,000 unit TAB PO SCH (08:06)
[2021-09-10] MEDS: Nitroglycerin 0.2 mg/hr PATCH (5 mg) TRANSDERM SCH (08:10)
[2021-09-10] MEDS: Magnesium Hydroxide LIQ 30 ML UDC PO PRN (08:10)
[2021-09-11] MEDS: Meropenem 1 GM PREMIX(*) 1 GM/50 ML BAG IV SCH ×2 (05:27→18:13)
[2021-09-11] MEDS: Cholecalciferol (VIT D3) 1,000 unit TAB PO SCH (09:16)
[2021-09-11] MEDS: Sulfamethox/Trimethoprim DS TAB 800/160 mg PO SCH ×2 (09:16→20:45)
[2021-09-11] MEDS: Nitroglycerin 0.2 mg/hr PATCH (5 mg) TRANSDERM SCH (09:18)
[2021-09-11 11:08] LABS: CO2 Carbon Dioxide 19 mmol/L (22-32); Calcium 9.3 mg/dL (8.6-10.3); Chloride 101 mmol/L (101-111); Sodium 127 mmol/L (135-145)
[2021-09-11 11:14] LABS: Blood Urea Nitrogen 13 mg/dL (6-24); Glucose 147 mg/dL (70-100)
[2021-09-11 11:32] LABS: Anion Gap 7 mmol/L (2-11)
[2021-09-12] MEDS: Meropenem 1 GM PREMIX(*) 1 GM/50 ML BAG IV SCH ×2 (05:31→17:44)
[2021-09-12 06:10] LABS: ABS Eosinophils 0.2 10^3/ul (0-0.6); ABS Lymphocytes 1.5 10^3/ul (1.0-4.8); ABS Monocytes 1.2 10^3/ul (0-0.8); ABS Neutrophils 6.3 10^3/ul (1.5-7.7); Eosinophil % 2.2 %; Hematocrit 37 % (42-52); Hemoglobin 12.4 g/dL (14.0-18.0); Mean Corpuscular HGB Conc 34 g/dL (31-36); Mean Corpuscular Hemoglobin 32 pg (27-31); Mean Corpuscular Volume 94 fL (80-94); Mean Platelet Volume 8.4 fL (7.4-10.4); Platelet Count 272 10^3/uL (150-450); Red Cell Distribution Width 14 % (10-15); White Blood Count 9.2 10^3/uL (3.5-10.8)
[2021-09-12 06:24] LABS: Calcium 9.5 mg/dL (8.6-10.3); Potassium 4.1 mmol/L (3.5-5.0)
[2021-09-12] MEDS: Cholecalciferol (VIT D3) 1,000 unit TAB PO SCH (10:25)
[2021-09-12] MEDS: Nitroglycerin 0.2 mg/hr PATCH (5 mg) TRANSDERM SCH (10:26)
[2021-09-12] MEDS: Sulfamethox/Trimethoprim DS TAB 800/160 mg PO SCH ×2 (10:33→20:17)
[2021-09-13] MEDS: Meropenem 1 GM PREMIX(*) 1 GM/50 ML BAG IV SCH (06:05)
[2021-09-13] MEDS: Sulfamethox/Trimethoprim DS TAB 800/160 mg PO SCH ×2 (09:13→20:44)
[2021-09-13] MEDS: Cholecalciferol (VIT D3) 1,000 unit TAB PO SCH (09:13)
[2021-09-13] MEDS: Nitroglycerin 0.2 mg/hr PATCH (5 mg) TRANSDERM SCH (09:14)
[2021-09-14 05:41] LABS: ABS Basophils 0.1 10^3/ul (0-0.2); ABS Eosinophils 0.3 10^3/ul (0-0.6); ABS Lymphocytes 1.6 10^3/ul (1.0-4.8); ABS Monocytes 0.9 10^3/ul (0-0.8); ABS Neutrophils 4.8 10^3/ul (1.5-7.7); Eosinophil % 3.7 %; Hematocrit 35 % (42-52); Hemoglobin 12.1 g/dL (14.0-18.0); Lymphocyte % 21.1 %; Mean Corpuscular HGB Conc 34 g/dL (31-36); Mean Corpuscular Hemoglobin 32 pg (27-31); Mean Corpuscular Volume 92 fL (80-94); Mean Platelet Volume 7.5 fL (7.4-10.4); Platelet Count 334 10^3/uL (150-450); Red Blood Count 3.83 10^6 /uL (4.18-5.48); Red Cell Distribution Width 13 % (10-15); White Blood Count 7.7 10^3/uL (3.5-10.8)
[2021-09-14 06:03] LABS: Calcium 9.5 mg/dL (8.6-10.3); Potassium 3.8 mmol/L (3.5-5.0)
[2021-09-14] MEDS: Cholecalciferol (VIT D3) 1,000 unit TAB PO SCH (09:21)
[2021-09-14] MEDS: Sulfamethox/Trimethoprim DS TAB 800/160 mg PO SCH ×2 (09:21→20:36)
[2021-09-14] MEDS: Nitroglycerin 0.2 mg/hr PATCH (5 mg) TRANSDERM SCH (09:22)
[2021-09-15] MEDS: Nitroglycerin 0.2 mg/hr PATCH (5 mg) TRANSDERM SCH (08:35)
[2021-09-15] MEDS: Cholecalciferol (VIT D3) 1,000 unit TAB PO SCH (08:35)
[2021-09-15] MEDS: Sulfamethox/Trimethoprim DS TAB 800/160 mg PO SCH (08:38)
[2021-09-15 09:34] LABS: Rapid COVID-19 Molecular Undetected (Undetected)
[2021-09-15 11:13] VITALS: BP 114/45
== END 2021-09-15 14:25 | DRG 689 ==
LOC: ED 21:42 → MEDTELE 21:42 → SUATTDRO 09-08 11:12
PROVIDERS: ADMIT Internal Medicine; ATTEND Student in an Organized Health Care Education/Training Program